=== PATIENT | female | born 1960 | race Caucasian/White ===

== ENCOUNTER 2018-03-06 16:30 | Emergency (ER) | payer OTHER ==
--- NOTE | 2018-03-06 17:43 | ER Document Report ---
ED Medical Screen (RME) - General Chief Complaint: Chest Pain Stated Complaint: CHEST PAIN Time Seen by Provider: 03/06/18 17:41 Mode of Arrival: Medic Information source: Patient, Relative TRAVEL OUTSIDE OF THE [place] IN LAST 30 DAYS: No - HPI Patient complains to provider of: cp Onset: This afternoon - pt with c/o SSCP while on HD earlier this afternoon. Has cardiac hx. Was given ASA and NTG by EMS - Related Data Allergies/Adverse Reactions: acetaminophen [From Darvocet-N 100] Allergy (Unknown, Verified 03/06/18 17:26) naproxen [Naproxen] Allergy (Unknown, Verified 03/06/18 17:26) Penicillins Allergy (Unknown, Verified 03/06/18 17:26) Physical Exam - Vital signs Vitals: Temp Pulse Resp BP Pulse Ox 98.4 F 68 20 146/75 H 96 03/06/18 16:46 03/06/18 16:46 03/06/18 16:46 03/06/18 16:46 03/06/18 16:46 Course - Vital Signs Vital signs: Temp Pulse Resp BP Pulse Ox 98.4 F 68 20 146/75 H 96 03/06/18 16:46 03/06/18 16:46 03/06/18 16:46 03/06/18 16:46 03/06/18 16:46 Doctor's Discharge - Discharge Referrals: HUYEN PEREA PA-C [Primary Care Provider] - Follow up as needed
[2018-03-06 18:09] LABS: ABSOLUTE EOSINOPHILS # (AUTO) 0.1 10^3/uL (0.0-0.6); ABSOLUTE LYMPHOCYTES (AUTO) 0.9 10^3/uL (0.5-4.7); ABSOLUTE MONOCYTES (AUTO) 0.8 10^3/uL (0.1-1.4); ABSOLUTE NEUT (AUTO) 5.7 10^3/uL (1.7-8.2); BASOPHILS % (AUTO) 0.5 % (0-2); EOSINOPHILS % (AUTO) 1.7 % (0-6); HEMATOCRIT 29.3 % (36.0-47.0); HEMOGLOBIN 9.9 g/dL (12.0-15.5); LYMPHOCYTES % (AUTO) 11.6 % (13-45); MEAN CORPUSCULAR HEMOGLOBIN 28.4 pg (27.0-33.4); MEAN CORPUSCULAR HGB CONC 33.9 g/dL (32.0-36.0); MEAN CORPUSCULAR VOLUME 84 fl (80-97); MONOCYTES % (AUTO) 11.2 % (3-13); PLATELET COUNT 179 10^3/uL (150-450); RED CELL DISTRIBUTION WIDTH 18.5 % (11.5-14.0); TOTAL CELLS COUNTED % (AUTO) 100 %; WHITE BLOOD COUNT 7.6 10^3/uL (4.0-10.5)
[2018-03-06 18:26] LABS: ALANINE AMINOTRANSFERASE 32 U/L (9-52); ALBUMIN 3.6 g/dL (3.5-5.0); ALKALINE PHOSPHATASE 40 U/L (38-126); ANION GAP 11 (5-19); ASPARTATE AMINO TRANSFERASE 39 U/L (14-36); BILIRUBIN,DIRECT 1.1 mg/dL (0.0-0.4); BILIRUBIN,TOTAL 1.3 mg/dL (0.2-1.3); BLOOD UREA NITROGEN 22 mg/dL (7-20); CALCIUM 8.7 mg/dL (8.4-10.2); CARBON DIOXIDE 33 mmol/L (22-30); CHLORIDE 100 mmol/L (98-107); CREATINE KINASE 33 U/L (30-135); GLUCOSE 80 mg/dL (75-110); POTASSIUM 3.7 mmol/L (3.6-5.0); SODIUM 143.5 mmol/L (137-145); TOTAL PROTEIN 6.3 g/dL (6.3-8.2)
--- NOTE | 2018-03-06 18:31 | RADIOLOGY REPORT (SQ) ---
EXAM DESCRIPTION: CHEST 2 VIEWS COMPLETED DATE/TIME: 03/06/2018 6:17 pm REASON FOR STUDY: cp COMPARISON: 02/16/2011 EXAM PARAMETERS: NUMBER OF VIEWS: two views TECHNIQUE: Digital Frontal and Lateral radiographic views of the chest acquired. RADIATION DOSE: NA LIMITATIONS: none FINDINGS: LUNGS AND PLEURA: Right pleural effusion. Smaller left pleural effusion. MEDIASTINUM AND HILAR STRUCTURES: No masses or contour abnormalities. HEART AND VASCULAR STRUCTURES: Cardiomegaly. No pulmonary edema. BONES: No acute findings. HARDWARE: None in the chest. OTHER: No other significant finding. IMPRESSION: Cardiomegaly with no pulmonary edema. Pleural effusions, right more than left. TECHNICAL DOCUMENTATION: JOB ID: [id number] [employer]- All Rights Reserved Reading location - IP/workstation name: [email or web address]
[2018-03-06 18:38] LABS: CREATINE KINASE MB 0.34 ng/mL (<4.55); TROPONIN I 0.019 ng/mL
--- NOTE | 2018-03-06 20:27 | ER Document Report ---
ED Cardiac - General Chief Complaint: Chest Pain Stated Complaint: CHEST PAIN Time Seen by Provider: 03/06/18 17:41 Mode of Arrival: Medic Information source: Patient Notes: Patient is a 58-year-old female who presents with chief complaint of chest pain that started at approximately 3 PM while she was at dialysis. Patient describes the pain as a achy pain to the left side of her chest with radiation to her right arm and through to her back. Patient reports associated nausea and shortness of breath, denies any diaphoresis. Patient reports she had a heart attack 20 years ago. Patient also has history of chronic kidney disease, hypertension, right-sided breast cancer, thyroid cancer, bladder cancer and kidney stones. TRAVEL OUTSIDE OF THE [place] IN LAST 30 DAYS: No - Related Data Allergies/Adverse Reactions: acetaminophen [From Darvocet-N 100] Allergy (Unknown, Verified 03/06/18 17:26) naproxen [Naproxen] Allergy (Unknown, Verified 03/06/18 17:26) Penicillins Allergy (Unknown, Verified 03/06/18 17:26) Past Medical History - General Information source: Patient, Relative - Social History Smoking Status: Never Smoker Drug Abuse: None Lives with: Family Family History: Reviewed & Not Pertinent Patient has suicidal ideation: No Patient has homicidal ideation: No - Past Medical History Cardiac Medical History: Reports: Hx Heart Attack Renal/ Medical History: Reports: Hx End Stage Renal Disease. Denies: Hx Peritoneal Dialysis Past Surgical History: Reports: Hx Section - x2, Hx Thyroid Surgery, Hx Tonsillectomy, Hx Vascular Surgery - Fistula placement Physical Exam - Vital signs Vitals: Temp Pulse Resp BP Pulse Ox 98.4 F 68 20 146/75 H 96 03/06/18 16:46 03/06/18 16:46 03/06/18 16:46 03/06/18 16:46 03/06/18 16:46 - Notes Notes: PHYSICAL EXAMINATION: GENERAL: Well-appearing, well-nourished and in no acute distress. HEAD: Atraumatic, normocephalic. EYES: Pupils equal round and reactive to light, extraocular movements intact, conjunctiva are normal. ENT: Nares patent, oropharynx clear without exudates. Moist mucous membranes. NECK: Normal range of motion, supple without lymphadenopathy LUNGS: Breath sounds clear to auscultation bilaterally and equal. No wheezes rales or rhonchi. HEART: Regular rate and rhythm without murmurs, reproducible chest pain with palpation to left chest wall. ABDOMEN: Soft, nontender, nondistended abdomen. No guarding, no rebound. No masses appreciated. Female : deferred Musculoskeletal: Normal range of motion, no pitting or edema. No cyanosis. NEUROLOGICAL: Cranial nerves grossly intact. Normal speech, normal gait. Normal sensory, motor exams PSYCH: Normal mood, normal affect. SKIN: Warm, Dry, normal turgor, no rashes or lesions noted. Course - Re-evaluation Re-evalutation: Patient results resolution of her chest pain approximately 1 hour after arrival to the emergency department today. Patient's chest x-ray reveals cardiomegaly with no pulmonary edema, pleural effusions noted. EKG is a sinus rhythm, no ST segment elevations or depressions are noted, there is a prolonged QT interval of 515. Again patient reports that she has had similar findings in the past. Discussed this with patient who reports that this is a chronic finding for her. Unfortunately patient has not been to this facility before so I do not have any baseline radiology reports or lab studies. CBC is unremarkable other than mild anemia with a hemoglobin of 9.9, hematocrit 29.3. Comprehensive metabolic panel reveals a BUN of 22, creatinine 3.59, patient is a dialysis patient reports that these numbers are actually good for her. Patient's electrolytes are all within normal limits. CK and CK-MB are unremarkable. Troponin is unremarkable. Delta troponin was also checked as an and is unremarkable. Patient continues to be chest pain-free, vital signs are stable. Patient does not want to stay any longer, patient reports that she will return if she develops worsening symptoms. 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 - Vital Signs Vital signs: Temp Pulse Resp BP Pulse Ox 98.4 F 76 20 152/78 H 99 03/06/18 16:46 03/06/18 22:24 03/06/18 22:24 03/06/18 22:24 03/06/18 22:24 - Laboratory Result Diagrams: 03/06/18 16:20 03/06/18 16:20 Laboratory results interpreted by me: 03/06/18 03/06/18 16:20 16:20 RBC 3.50 L Hgb 9.9 L Hct 29.3 L RDW 18.5 H Lymphocytes % 11.6 L Carbon Dioxide 33 H BUN 22 H Creatinine 3.59 H Est GFR ( Amer) 16 L Est GFR (Non-Af Amer) 13 L Direct Bilirubin 1.1 H AST 39 H Discharge - Discharge Clinical Impression: Chest pain Qualifiers: Chest pain type: unspecified Qualified Code(s): R07.9 - Chest pain, unspecified Condition: Stable Disposition: HOME, SELF-CARE Additional Instructions: Chest Pain of Unclear Cause The exact cause of your chest pain isn't clear. Fortunately, there is no evidence of a dangerous medical condition. Further testing may be required to find the source of the pain. Most often, we find that this pain is coming from the chest wall -- the muscles or rib joints in the chest. But chest pain can come from the lung and lung lining, the esophagus, the heart valves or heart lining, and even the stomach or gallbladder. Rest. Eat lightly until the pain is gone. We may prescribe medicine for pain and inflammation. You should call the physician immediately if the pain radiates to the shoulder, jaw or arms; if you start to run a fever or develop a cough; or if you develop shortness of breath, or other new or alarming symptoms. Your work-up today was normal. Both your first and second troponins were within normal limits. You have declined any further work-up or admission. Please return if your chest pain worsens in any way. Referrals: HUYEN PEREA PA-C [ALLIED HEALTH PROFESSIONAL] - Follow up as needed
[2018-03-06] MEDS ORDERED: LIDOCAINE 2% VISCOUS SOLN 20 ML UDCUP PO ONE (22:11)
[2018-03-06] MEDS ORDERED: METOCLOPRAMIDE HCL ORAL SOLN 10 MG/10 ML UDCUP PO ONE (22:11)
[2018-03-06] MEDS ORDERED: MAG HYDROX/AL HYDROX/SIMETH SUSP 30 ML UDCUP PO ONE (22:11)
[2018-03-06 22:25] VITALS: BP 152/78
== END 2018-03-06 22:25 | disposition home or self-care (01) ==
LOC: ER 16:30
DX: R07.9 Chest pain, unspecified (principal); R11.0 Nausea; I12.0 Hypertensive chronic kidney disease with stage 5 chronic kidney disease or end stage renal disease; N18.6 End stage renal disease; Z99.2 Dependence on renal dialysis; D64.9 Anemia, unspecified; R06.02 Shortness of breath; I25.2 Old myocardial infarction; Z85.3 Personal history of malignant neoplasm of breast; Z85.850 Personal history of malignant neoplasm of thyroid; Z85.51 Personal history of malignant neoplasm of bladder; Z88.6 Allergy status to analgesic agent; Z88.8 Allergy status to other drugs, medicaments and biological substances; Z88.0 Allergy status to penicillin
CPT/HCPCS: 99285; 36415; 82553; 82550; 85025; 80053; 84484; 71046; J3490